=== PATIENT | female | born 1990 | race Caucasian/White ===

== ENCOUNTER 2016-09-16 12:33 | Emergency (ER) | payer OTHER ==
[~2016-09-16] VITALS: Ht 175.3 cm; Wt 63.5 kg
[2016-09-16 12:42] VITALS: BP 117/89; PULSE 79; RESP 16; TEMP 98.5; O2SAT 97
== END 2016-09-16 14:02 | disposition home or self-care (01) ==
LOC: SED 12:33
DX: L03.317 Cellulitis of buttock (principal)
CPT/HCPCS: 99283

== ENCOUNTER 2017-05-26 22:16 | Emergency (ER) | payer OTHER ==
[~2017-05-26] VITALS: Ht 175.3 cm; Wt 68.0 kg
[2017-05-26 22:30] VITALS: BP_SYST 123
[2017-05-26] MEDS ORDERED: PENICILLIN G BENZATHINE 1.2 MMU/2 ML SYR IM ONE (23:00)
[2017-05-26 23:40] VITALS: BP_SYST 122
== END 2017-05-26 23:40 | disposition home or self-care (01) ==
LOC: SED 22:16
DX: J03.90 Acute tonsillitis, unspecified (principal)
CPT/HCPCS: 96372; 99283; J0561